=== PATIENT | female | born 1980 ===

== ENCOUNTER 2016-06-10 09:23 | Emergency (ER) | payer SELFPAY ==
--- NOTE | 2016-06-10 10:44 | UC ---
Ear Complaint HPI - HPI Summary HPI Summary: complaint of buioateral ear pain that started yesterday Left ear hurts more than right ear mild headache, mild nasal congestion, denies cough, fever, sore throat denies N/V/D, myalgias took some advil yesterday without relief - History of Current Complaint Chief Complaint: UCEar Stated Complaint: EAR PAIN Time Seen by Provider: 06/10/16 10:26 Hx Obtained From: Patient Hx Last Menstrual Period: 06/06/16 Aggravating Factors: Nothing - Allergies/Home Medications Allergies/Adverse Reactions: Allergies Allergy/AdvReac Type Severity Reaction Status Date / Time No Known Allergies Allergy Verified 06/10/16 09:52 Home Medications: Home Medications Ibuprofen [Advil] 2 tab PO PRN 06/10/16 [History] PMH/Surg Hx/FS Hx/Imm Hx Previously Healthy: Yes - Surgical History Surgical History: None - Family History Known Family History: Negative: Cardiac Disease, Hypertension, Diabetes - Social History Occupation: Employed Full-time Lives: With Family Alcohol Use: None Substance Use Type: Marijuana Substance Use Comment - Amount & Last Used: Rarely Smoking Status (MU): Light Every Day Tobacco Smoker Household Exposure Type: Cigarettes Cessation Counseling: Patient Advised to Stop - Immunization History Most Recent Influenza Vaccination: not utd Review of Systems Constitutional: Negative Skin: Negative Eyes: Negative ENT: Ear Ache, Nasal Discharge Respiratory: Negative Cardiovascular: Negative Gastrointestinal: Negative Genitourinary: Negative Motor: Negative Neurovascular: Negative Musculoskeletal: Negative Neurological: Negative Psychological: Negative All Other Systems Reviewed And Are Negative: Yes Physical Exam Triage Information Reviewed: Yes Appearance: Well-Appearing, Well-Nourished Vital Signs: Initial Vital Signs Temp 99.4 F 06/10/16 09:53 Pulse 94 06/10/16 09:53 Resp 16 06/10/16 09:53 BP 126/88 06/10/16 09:53 Pulse Ox 100 06/10/16 09:53 Vital Signs Reviewed: Yes Eyes: Positive: Conjunctiva Clear ENT: Positive: Pharynx normal, Nasal drainage - clear thin, TM bulging, Other: - both ear canals erythemaotu and swollen, Left worse than right. Negative: Nasal congestion, TM red, Tonsillar swelling, Tonsillar exudate Neck: Positive: No Lymphadenopathy Respiratory: Positive: Lungs clear, Normal breath sounds, No respiratory distress Cardiovascular: Positive: RRR, No Murmur Abdomen Description: Positive: Nontender, Soft Bowel Sounds: Positive: Present Musculoskeletal: Positive: No Edema Neurological: Positive: Alert Psychological Exam: Normal Skin Exam: Normal Ear Complaint Course/Dx - Differential Dx/Diagnosis Differential Diagnosis/HQI/PQRI: Otitis Externa, Otitis Media, Other - eustachion tube dysfunction Provider Diagnoses: otitis externa, eustachion tube dysfunction Discharge - Discharge Plan Condition: Stable Disposition: HOME Prescriptions: Ciproflox/Dexameth OTIC.SUSP* [Ciprodex OTIC.SUSP*] 1 drop .SEE ORDER BID #1 btl Fluticasone NASAL SPRAY 50MCG* [Flonase NASAL SPRAY 50MCG*] 2 spray BOTH NARES DAILY #1 btl Patient Education Materials: Eustachian Tube Dysfunction (GEN), Otitis Externa (ED) Forms: *Work Release Referrals: Eduar Rico MD [Primary Care Provider] - Additional Instructions: Start ear drop and nasal spray as directed Increase fluids and rest Take acetaminophen or ibuprofen for fever or pain Please review your discharge instructions. If your symptoms do not improve please call your primary care provider or return to urgent care
== END 2016-06-10 10:56 | disposition home or self-care (01) ==
LOC: UCEAST 09:23
DX: H60.93 Unspecified otitis externa, bilateral (principal); H69.93 Unspecified Eustachian tube disorder, bilateral; F12.90 Cannabis use, unspecified, uncomplicated; F17.210 Nicotine dependence, cigarettes, uncomplicated
CPT/HCPCS: 99202; G0463